=== PATIENT | female | born 1950 | race African-American/Black ===

== ENCOUNTER → 2016-12-24 | Outpatient (CLI) | payer MEDICARE, OTHER ==
[~2016-12-24] MED LIST: CAL1TABL PO; CARI250T7 PO; DEXL30CA3 PO; DILT-33 PO; GABA-531 PO; HYDR-3965 PO; INSNOV SQ; LEVAHFA IH; LUBI24CA2 PO; METO-325 PO; TAPE100T2 PO; TAPE250T PO; TORS20 PO; WARF3TAB29 PO; ZOLPIDEM PO
== END | disposition home or self-care (01) ==
LOC: RADMN 13:52
PROVIDERS: ATTEND Legal Medicine
DX: N18.4 Chronic kidney disease, stage 4 (severe) (principal); I27.0 Primary pulmonary hypertension; I67.2 Cerebral atherosclerosis; R42 Dizziness and giddiness; M54.2 Cervicalgia; W19.XXXA Unspecified fall, initial encounter
CPT/HCPCS: 70450; 72125

== ENCOUNTER → 2017-03-19 | Outpatient (CLI) | payer MEDICARE, OTHER ==
[2017-03-19 14:57] LABS: INR 3.3 (0.9-1.1); PROTHROMBIN TIME 35.4 SEC (9.4-11.6)
== END | disposition home or self-care (01) ==
LOC: LABPV 14:08
PROVIDERS: ATTEND Legal Medicine
DX: I82.409 Acute embolism and thrombosis of unspecified deep veins of unspecified lower extremity (principal)
CPT/HCPCS: 99001

== ENCOUNTER → 2017-09-08 | Outpatient (CLI) | payer MEDICARE, OTHER ==
[~2017-09-08] MED LIST changes: -DILT-33 PO; +DILT120C57 PO; -METO-325 PO; +METO-558 PO
== END | disposition home or self-care (01) ==
LOC: RADPV 08:34
PROVIDERS: ATTEND Legal Medicine
DX: I82.401 Acute embolism and thrombosis of unspecified deep veins of right lower extremity (principal); M25.571 Pain in right ankle and joints of right foot; M79.661 Pain in right lower leg; M79.671 Pain in right foot
CPT/HCPCS: 93971

== ENCOUNTER → 2018-03-24 | Outpatient (CLI) | payer MEDICARE, OTHER | END | disposition home or self-care (01) | LOC: RADPV 12:57 | PROVIDERS: ATTEND Legal Medicine | DX: M84.375D Stress fracture, left foot, subsequent encounter for fracture with routine healing (principal); M77.9 Enthesopathy, unspecified ==

== ENCOUNTER → 2019-04-05 | Outpatient (CLI) | payer MEDICARE, OTHER ==
[~2019-04-05] MED LIST changes: +DILT-3 PO; -DILT120C57 PO
== END | disposition home or self-care (01) ==
LOC: RADPV 13:01
PROVIDERS: ATTEND Legal Medicine
DX: S22.31XA Fracture of one rib, right side, initial encounter for closed fracture (principal); J98.11 Atelectasis; X58.XXXA Exposure to other specified factors, initial encounter; Y93.89 Activity, other specified; Y92.89 Other specified places as the place of occurrence of the external cause; Y99.8 Other external cause status
CPT/HCPCS: 71101

== ENCOUNTER → 2019-04-07 | Outpatient (CLI) | payer MEDICARE, OTHER | END | disposition home or self-care (01) | LOC: RADPV 10:35 | PROVIDERS: ATTEND Legal Medicine | DX: S62.92XA Unspecified fracture of left hand, initial encounter for closed fracture (principal); M25.512 Pain in left shoulder; X58.XXXA Exposure to other specified factors, initial encounter; Y93.89 Activity, other specified; Y92.89 Other specified places as the place of occurrence of the external cause; Y99.8 Other external cause status ==

== ENCOUNTER → 2019-04-07 | Outpatient (CLI) | payer MEDICARE, OTHER | END | disposition home or self-care (01) | LOC: RADMN 09:17 | PROVIDERS: ATTEND Legal Medicine | DX: S22.31XD Fracture of one rib, right side, subsequent encounter for fracture with routine healing (principal); I25.10 Atherosclerotic heart disease of native coronary artery without angina pectoris; I70.0 Atherosclerosis of aorta; Z98.84 Bariatric surgery status; X58.XXXD Exposure to other specified factors, subsequent encounter | CPT/HCPCS: 71250 ==